=== PATIENT | male | born 1985 | race Caucasian/White ===

== ENCOUNTER 2025-02-23 12:20 | Emergency (ER) | payer BC, SELFPAY ==
[2025-02-23 12:27] VITALS: BP 142/99
--- NOTE | 2025-02-23 13:22 | ED.GENMED ---
History of Present Illness
General
Chief Complaint: Numbness
Source: patient
Exam Limitations: none
Time Seen by Provider: 02/23/25 13:09
Nursing documentation reviewed up to this point in time: agreed with
History of Present Illness
History of Present Illness:
Note:
CHIEF COMPLAINT(S)
Tingling sensation and pressure in the neck and head, with a history of previous Lyme disease exposure.
HISTORY OF PRESENT ILLNESS
The patient is a 39-year-old male presenting with tingling and a slight pressure sensation in the neck and head, originating approximately a month ago. Initially, the patient experienced a stiff neck, which was dismissed due to their sleeping
position and eventually subsided. Recently, the symptoms reappeared a day prior, with a tingling sensation and a faint pressure described as 'not like a headache headache' but an awareness of some discomfort. The patient remarked, 'I can feel it. It
doesnt hurt or anything.' There were no associated rashes, similar to past Lyme disease history, where a rash was only noticed due to being pointed out by a girlfriend. The patient mentioned extensive outdoor activity and frequent interaction with
ticks, with numerous ticks removed from both himself and his pets. He confirmed a prior episode of Lyme disease.
PHYSICAL EXAM
- Nursing notes reviewed and vital signs reviewed.
Physical Exam
General: no apparent distress, not acutely ill
Neck: supple. no meningeal signs. normal posterior pharynx
Heart: s1/s2 regular rate and rhythm, no murmur. equal radial
pulses.
HEENT: Pupils equal round reactive to light, EOMI
Lungs: no acute respiratory distress. clear bilaterally
Abdomen: normal bowel sounds. not tender. no CVAT
Neuro: alert and oriented. no focal neurological deficits cranial nerves II through XII intact
Skin: no rash
Psychiatric: well kept. interactive and cooperative
Extremities: no edema. no calf tenderness. negative homans. good distal pulses
PROBLEM LIST
Acute Problems:
- Tingling and pressure in the neck and head.
- Exposure to ticks and potential Lyme disease.
PLAN
- Conduct blood tests to rule out underlying conditions.
- Perform a computed tomography scan of the head to assess for any intracranial issues.
- Consider empirical treatment for Lyme disease, pending blood test results, in light of possible tick exposure.
- Discuss the option of initiating antibiotics based on clinical suspicion and history of exposure.
DIFFERENTIAL DIAGNOSIS
The Differential Diagnosis includes, in no particular order and is not limited to:
1. Lyme Disease
2. Migraine
3. Tension Headache
4. Cervical Radiculopathy
5. Electrolyte Imbalance
6. Sinusitis
7. Cluster Headache
8. Cervicogenic Headache
9. Anxiety
10. Occipital Neuralgia
Note:
CARE-UPDATE
02/23/25 - 16:14
Lyme screen results are pending. Current assessment suggests no meningitis due to absence of meningeal symptoms. Electrolyte levels appear normal, with a possible migraine being considered. Patient advised to follow up with primary care and has been
provided with pertinent precautionary measures.
Disposition:
SUMMARY OF ENCOUNTER
The patient, a 39-year-old male, presented to the emergency department with complaints of tingling and pressure sensation in the neck and head, which began approximately a month ago. Initially accompanied by a stiff neck that was attributed to
sleeping position and subsequently resolved, the symptoms recently recurred. Given the patients history of extensive outdoor activity and previous exposure to ticks, consideration for Lyme disease was evaluated. Blood tests and a CT scan of the head
were ordered to rule out underlying conditions and assess for any intracranial issues.
DISPOSITION
Discharge home.
ASSESSMENT
The patients clinical presentation suggested a potential recurrence of Lyme disease or another type of headache, possibly linked to previous outdoor exposure and tick interactions. Differential diagnosis includes migraine, tension headache,
cervicogenic headache, and other possibilities as enumerated.
PLAN
- Await Lyme screen results and consider empirical treatment for Lyme disease, given the history and clinical suspicion.
- Conduct a follow-up visit with primary care for additional evaluation and management.
- Educate the patient on precautionary measures to avoid tick exposure and recognize early symptoms of Lyme disease.
MEDICAL DECISION MAKING
The number and complexity of problems addressed were significant, considering the potential variety of diagnoses associated with the patients symptoms. The decision to perform blood tests and a CT scan reflects the necessity to rule out serious
conditions like intracranial issues and Lyme disease. The consideration of Lyme disease, despite normal electrolyte levels and the absence of overt meningeal signs, addresses both the patients history and presenting symptoms. Potential
hospitalization was considered but determined unnecessary at this juncture, with outpatient follow-up and monitoring decided as appropriate steps. Discharge planning incorporated a thorough evaluation of social determinants of health and the
patients ability to access medical follow-up, with finalized discharge being deemed suitable following primary investigation and interim management steps.
Phy Exam
Physical Exam
Physical Exam:
,
Course
Orders/Labs/Results
Orders:
Orders
02/23/25 13:21
IV Insert/Care/Rem.- Treatment PRN
02/23/25 13:25
CT Head W/o Iv Contrast Urgent
Comment:
Reason For Exam: headache
Complete Blood Count/With Diff Urgent
Comprehensive Metabolic Panel Urgent
Lyme Progressive Urgent
Abnormal Lab Results
02/23/25
13:25
Absolute Lymphs (auto) 1.0 L 10^3/uL
(1.2-3.4)
Neutrophils % 77.3 H %
(42.2-75.2)
Lymphocytes % 13.0 L %
(20.5-51.1)
Albumin 5.1 H g/dl
(3.5-5.0)
02/23/25 13:25
02/23/25 13:25
Vital Signs
Initial and Last Documented VS:
Initial Vital Signs
Temp Pulse Resp BP Pulse Ox
98.2 F 82 19 142/99 100
02/23/25 12:27 02/23/25 12:27 02/23/25 12:27 02/23/25 12:27 02/23/25 12:27
Last Documented Vital Signs
Temp Pulse Resp BP Pulse Ox
98.2 F 82 18 132/81 99
02/23/25 12:27 02/23/25 16:33 02/23/25 16:33 02/23/25 16:33 02/23/25 16:33
*Pulse Oximetry
SaO2: 100
Oxygen Mode of Delivery: Room air
Patient hypoxic: no
*Critical Care Note
Total Time (30-74mins, 75-104mins- exclusive of procedures): Not Applicable
ED Attending Note
-
Portions of this chart may have been created with voice recognition software.� Occasional wrong word or��sound alike� substitutions may have occurred due to the inherent limitations of voice recognition software.
Discharge Plan
Departure
Patient Disposition: Home (Routine Discharge)
Date of Disposition: 02/23/25
Time of Disposition: 16:18
Patient with high blood pressure during this ER visit?: Yes
Condition: Good
Discharge Problem:
Facial paresthesia, Headache
Instructions: Paresthesia (DC), Headaches in adults, BLOOD PRESSURE
Prescriptions:
No Action
lorazepam 1 MG tablet
1 mg PO Q4HPRN PRN (Reason: alcohol withdrawal) Qty: 20 0RF
gabapentin 400 MG capsule
800 mg PO Q8H Qty: 60 0RF
nicotine 21 MG patch 24 hour
21 mg transdermal DAILY Qty: 15 0RF
Referrals:
NONE,* [Family Provider, Internal Medicine]
Activity Restrictions/Additional Instructions:
Follow up with primary care in 3-5 days. Return for any concners.
Interventions
Interventions:
*Risk Screen - Suicide Last Done: 02/23/25 12:27
*General Assessment Last Done: 02/23/25 13:33
*Neglect/Abuse Screening Last Done: 02/23/25 12:27
*ED- Fall Risk Assessment Last Done: 02/23/25 13:33
*Nursing Disposition Last Done: 02/23/25 16:34
ED- Neurological Assessment Last Done: 02/23/25 13:32
Discharge Date and Time
Discharge Date/Time: 02/23/25 16:34
Print Language: [id number]
[2025-02-23 13:33] LABS: % Basophils 0.7 % (0-2); % Eosinophils 1.4 % (0-6); % Immature Granulocytes 0.3 % (0-0.5); % Monocytes 7.3 % (1.7-9.3); % Neutrophils 77.3 % (42.2-75.2); Absolute Basophils 0.1 10^3/uL (0-0.2); Absolute Eosinophils 0.1 10^3/uL (0-0.7); Absolute Monocytes 0.6 10^3/uL (0.1-0.6); Hematocrit 45.2 % (39.0-52.0); Hemoglobin 15.3 g/dL (13.0-18.0); Mean Corp Hgb Conc. 33.8 g/dL (33.0-37.0); Mean Corpuscular Hgb 30.3 pg (27.0-31.0); Mean Corpuscular Volume 89.5 fL (80.0-94.0); Mean Platelet Volume 9.7 fL (7.4-10.4); Nucleated Red Blood Cells % 0 % (-); Platelet Count 267 10^3/uL (130-400); Red Blood Cell Count 5.05 10^6/uL (4.70-6.10); Red Cell Dist. Width 13.1 % (11.5-14.5); White Blood Cell Count 7.7 10^3/uL (4.8-10.8)
[2025-02-23 13:53] LABS: ALT (SGPT) 20 U/L (0-50); AST (SGOT) 26 U/L (17-59); Albumin 5.1 g/dl (3.5-5.0); Alkaline Phosphatase 56 U/L (38-126); Blood Urea Nitrogen 13 mg/dl (9-20); Calcium 10.1 mg/dl (8.4-10.2); Carbon Dioxide 25 mmol/L (22-30); Chloride 107 mmol/L (98-107); Glucose 99 mg/dl (70-99); Potassium 4.1 mmol/L (3.5-5.1); Sodium 140 mmol/L (135-145); Total Bilirubin 0.8 mg/dl (0.2-1.3); Total Protein 7.7 g/dl (6.3-8.2); eGFR > 60.00
[2025-02-23 16:33] VITALS: BP 132/81
[2025-02-24 13:28] LABS: Lyme Antibody Screen, EIA Negative (Negative)
== END 2025-02-23 16:34 | disposition home or self-care (01) ==
LOC: EMR 12:20
PROVIDERS: EMERGENCY PHYSICIAN Emergency Medicine
DX: R20.0 Anesthesia of skin (principal); R51.9 Headache, unspecified
CPT/HCPCS: 99284; 70450; 80053; 85025; 86618